=== PATIENT | female | born 1960 ===

== ENCOUNTER 2016-09-29 08:53 | Emergency (ER) | payer SELFPAY ==
[2016-09-29 09:05] VITALS: BP 115/64; PULSE 82; RESP 20; TEMP 97.8; O2SAT 100
[2016-09-29] MEDS ORDERED: Naproxen 500 MG TAB PO ONE (09:31)
--- NOTE | 2016-09-29 10:56 | ED PDOC ---
Upper Extremity Pain/Injury Time Seen by Provider: 09/29/16 09:22 Chief Complaint (Nursing): Upper Extremity Problem/Injury History Per: Patient (states she fell and landed on her left arm 2 weeks ago when she slipped in the bath tub. Patients denies LOC. She has had pain and persistent swelling on the distal left forearm/wrist area. ) History/Exam Limitations: no limitations Onset/Duration Of Symptoms: Sudden Onset Current Symptoms Are (Timing): Still Present Past Medical History Reviewed: Historical Data, Nursing Documentation, Vital Signs Vital Signs: Last Vital Signs Temp 97.8 F 09/29/16 09:01 Pulse 82 09/29/16 09:01 Resp 20 09/29/16 09:01 BP 115/64 09/29/16 09:01 Pulse Ox 100 09/29/16 09:01 - Medical History PMH: No Chronic Diseases - Surgical History Surgical History: No Surg Hx - Family History Family History: States: Unknown Family Hx - Immunization History Hx Tetanus Toxoid Vaccination: No Hx Influenza Vaccination: No Hx Pneumococcal Vaccination: No - Home Medications Home Medications: Ambulatory Orders Medication Instructions Recorded Naproxen [Naprosyn] 500 mg PO BID PRN #20 tablet 09/29/16 - Allergies Allergies/Adverse Reactions: Allergies Allergy/AdvReac Type Severity Reaction Status Date / Time No Known Allergies Allergy Verified 09/29/16 09:17 Review of Systems ROS Statement: Except As Marked, All Systems Reviewed And Found Negative Physical Exam - Reviewed Nursing Documentation Reviewed: Yes Vital Signs Reviewed: Yes - Physical Exam Appears: Positive for: Well, Non-toxic, No Acute Distress Head Exam: Positive for: ATRAUMATIC, NORMAL INSPECTION, NORMOCEPHALIC Skin: Positive for: Normal Color, Warm, DRY Eye Exam: Positive for: Normal appearance ENT: Positive for: Normal ENT Inspection Neck: Positive for: Normal Respiratory: Positive for: CNT, Normal Breath Sounds Gastrointestinal/Abdominal: Positive for: Normal Exam Back: Positive for: Normal Inspection Extremity: Positive for: Normal ROM, Tenderness, Deformity (mild), Swelling ( left wrist) Neurologic/Psych: Positive for: Alert, Oriented - ECG O2 Sat by Pulse Oximetry: 100 Disposition - Clinical Impression Clinical Impression: Left radial fracture - Patient ED Disposition Is Patient to be Admitted: No Doctor Will See Patient In The: Office Counseled Patient/Family Regarding: Diagnosis, Need For Followup - Disposition Referrals: [facility] [Outside] [facility] [Outside] Disposition: Routine/Home Disposition Time: 10:57 Condition: STABLE Prescriptions: Naproxen [Naprosyn] 500 mg PO BID PRN #20 tablet PRN Reason: Pain, Moderate (4-7) Instructions: Wrist Fracture in Adults (ED) Forms: [employer] (Uzbek), [facility] ED School/Work Excuse Print Language: LEBANESE - POA Present On Arrival: Falls Or Trauma
--- NOTE | 2016-09-29 11:44 | RAD ---
PROCEDURE: Left Wrist Radiographs. HISTORY: fall 2 weeks ago with swelling COMPARISON: None. FINDINGS: BONES: There is an acute transverse nondisplaced impacted fracture in the distal radius with volar angulation. Also noted is an acute comminuted fracture in the styloid process of ulna. There is mild periarticular bone demineralization. JOINTS: Normal. No dislocation. SOFT TISSUES: There is mild soft tissue swelling at the wrist joint. OTHER FINDINGS: None. IMPRESSION: Acute transverse nondisplaced impacted fracture in the distal radius with volar angulation. Acute comminuted fracture in the styloid process of ulna.
== END 2016-09-29 11:11 | disposition home or self-care (01) ==
LOC: H.ER 08:53
DX: S52.502A Unspecified fracture of the lower end of left radius, initial encounter for closed fracture (principal); W18.2XXA Fall in (into) shower or empty bathtub, initial encounter; Y93.9 Activity, unspecified